=== PATIENT | female | born 1980 | race African-American/Black ===

== ENCOUNTER 2016-11-18 13:29 | Emergency (ER) | payer OTHER | END 2016-11-18 14:04 | disposition home or self-care (01) | LOC: FER 13:29 | DX: R05 Cough (principal); J02.9 Acute pharyngitis, unspecified; R06.02 Shortness of breath | CPT/HCPCS: 99283 ==

== ENCOUNTER 2017-02-21 16:30 | Emergency (ER) | payer OTHER | END 2017-02-21 18:35 | disposition home or self-care (01) | LOC: FER 16:30 | DX: M25.551 Pain in right hip (principal); M72.2 Plantar fascial fibromatosis; M77.52 Other enthesopathy of left foot and ankle | CPT/HCPCS: 73502; 73630 ==

== ENCOUNTER 2017-03-18 13:20 | Emergency (ER) | payer OTHER | END 2017-03-18 18:20 | disposition left against medical advice (07) | LOC: FER 13:20 | DX: J02.9 Acute pharyngitis, unspecified (principal) | CPT/HCPCS: 87450 ==

== ENCOUNTER 2017-03-18 21:52 | Emergency (ER) | payer OTHER | END 2017-03-19 00:20 | disposition home or self-care (01) | LOC: FER 21:52 | DX: J20.9 Acute bronchitis, unspecified (principal); J04.0 Acute laryngitis; J02.0 Streptococcal pharyngitis | CPT/HCPCS: 94640; 94760 ==

== ENCOUNTER 2021-02-27 05:32 | Emergency (ER) | payer OTHER ==
[~2021-02-27 05:32] MED LIST: FLEXERIL10 MG PO; IBUPROFEN800 MG PO; NEURONTIN300 MG PO; VENTOLIN HFA IN18 GM INH; ZPAK PO
[2021-02-27 06:08] LABS: BASOPHIL 0.4 % (0-2); EOSINOPHIL 2.5 % (0-5); HCT 39.6 % (37.0-47.0); HGB 13.2 g/dl (12.5-16.0); MCH 29.4 pg (25.0-31.0); MCHC 33.3 g/dL (32.0-36.0); MCV 88.2 fL (78.0-100.0); MONOCYTE 5.1 % (0-12); MPV 9.8 fL (6.0-9.5); NEUTROPHIL 18.2 % (41-80); NRBC 0; PLT 339 K/uL (150-400); RBC 4.49 M/uL (4.20-5.40); RDW 13.2 % (11.5-14.0); WBC 9.1 K/uL (4.0-10.5)
[2021-02-27 06:12] LABS: LYMPHOCYTE 73.7 % (15-48)
[2021-02-27 06:19] LABS: ALBUMIN 4.6 g/dL (3.4-5.0); BILIRUBIN - TOTAL 0.3 mg/dL (0.2-1.0); BUN/CREAT RATIO (CALC) 11.6 RATIO; CREATININE 0.86 mg/dL (0.51-0.95); GLOBULIN (CALCULATION) 4.1 g/dL; POTASSIUM 3.4 mmol/L (3.5-5.1); TOTAL PROTEIN 8.7 g/dL (6.4-8.2)
[2021-02-27 07:19] LABS: BILIRUBIN NEGATIVE (NEGATIVE); BLOOD NEGATIVE Ery/uL (NEGATIVE); CLARITY CLEAR (CLEAR); COLOR YELLOW (YELLOW); GLUCOSE (U) NORMAL (NORMAL); LEUKOCYTES NEGATIVE Leu/uL (NEGATIVE); NITRITE NEGATIVE (NEGATIVE); PROTEIN TRACE (LOW) mg/dL (NEGATIVE); SPECIFIC GRAVITY >=1.030 (1.001-1.030); UROBILINOGEN 0.2 mg/dL (0.2-1.0)
[2021-02-27 07:44] LABS: BACTERIA TRACE; URINARY WBC RARE
== END 2021-02-27 11:55 | disposition home or self-care (01) ==
LOC: FER 05:32
PROVIDERS: Emergency Medicine
DX: I95.1 Orthostatic hypotension (principal); E86.0 Dehydration; B34.9 Viral infection, unspecified; D72.828 Other elevated white blood cell count; Z20.822 Contact with and (suspected) exposure to COVID-19; F17.210 Nicotine dependence, cigarettes, uncomplicated; Z79.899 Other long term (current) drug therapy
CPT/HCPCS: 36415; 80053; 81001; 84145; 84484; 85025; 85379; 93005; J2405; J7030; U0002

== ENCOUNTER 2022-01-11 07:54 | Emergency (ER) | payer OTHER ==
[2022-01-11 08:45] LABS: BASOPHIL 0.5 % (0-2); EOSINOPHIL 3.9 % (0-5); HCT 39.8 % (37.0-47.0); MCH 28.3 pg (25.0-31.0); MCHC 32.7 g/dL (32.0-36.0); MCV 86.7 fL (78.0-100.0); MONOCYTE 5.9 % (0-12); MPV 9.4 fL (6.0-9.5); NEUTROPHIL 43.5 % (41-80); NRBC 0; PLT 332 K/uL (150-400); RBC 4.59 M/uL (4.20-5.40); RDW 12.6 % (11.5-14.0); WBC 8.5 K/uL (4.0-10.5)
[2022-01-11 09:12] LABS: ALBUMIN 3.8 g/dL (3.4-5.0); BILIRUBIN - TOTAL 0.2 mg/dL (0.2-1.0); C-REACTIVE PROTEIN 0.8 mg/dL (<=0.90); FT4 (FREE T4) 0.8 ng/dL (0.76-1.46); POTASSIUM 3.2 mmol/L (3.5-5.1); TOTAL PROTEIN 7.8 g/dL (6.4-8.2)
[2022-01-11] MEDS ORDERED: FIORICET1 EACH PO (09:59)
== END 2022-01-11 10:22 | disposition home or self-care (01) ==
LOC: FER 07:54
PROVIDERS: Emergency Medicine
DX: R51.9 Headache, unspecified (principal); I10 Essential (primary) hypertension; F17.290 Nicotine dependence, other tobacco product, uncomplicated
CPT/HCPCS: 36415; 70450; 80053; 84439; 84443; 84703; 85025; 86140; J1200; J1885; J2765; J7030

== ENCOUNTER 2022-01-17 16:58 | Emergency (ER) | payer OTHER ==
[~2022-01-17 16:58] MED LIST changes: +FIORICET1 EACH PO
[2022-01-17] MEDS ORDERED: ONDANSETRON ODT4 MG PO (18:10)
== END 2022-01-17 18:40 | disposition home or self-care (01) ==
LOC: FER 16:58
DX: G44.89 Other headache syndrome (principal); F19.239 Other psychoactive substance dependence with withdrawal, unspecified
CPT/HCPCS: 96372; J1885; J2405